=== PATIENT | female | born 1975 | race Caucasian/White ===

== ENCOUNTER 2020-09-14 16:31 | Emergency (ER) | payer OTHER ==
[~2020-09-14] VITALS: Ht 165.1 cm; Wt 88.6 kg
[2020-09-14 17:04] VITALS: BP 126/76
[2020-09-14 17:21] LABS: COVID AG,FIA SOURCE NASOPHARYNGEAL
== END 2020-09-14 19:30 | disposition home or self-care (01) ==
LOC: EMS 16:31
DX: Z20.828 Contact with and (suspected) exposure to other viral communicable diseases (principal)
CPT/HCPCS: 87426